=== PATIENT | female | born 1985 | race African-American/Black ===

== ENCOUNTER 2018-08-02 11:37 | Emergency (ER) | payer BC, MEDICAID ==
[~2018-08-02] VITALS: Ht 167.6 cm; Wt 151.0 kg
[2018-08-02] MEDS ORDERED: IBUPROFEN 600MG TABLET PO ONE (12:45)
[2018-08-02 13:03] LABS: CLARITY URINE CLOUDY (CLEAR); COLOR URINE DARK YELLOW (YELLOW); KETONES URINE TRACE (NEGATIVE); LEUKOCYTE ESTERASE URINE TRACE (NEGATIVE); NITRITE URINE NEGATIVE (NEGATIVE); OCCULT BLOOD URINE 3+ (NEGATIVE); PROTEIN URINE 1+ (NEGATIVE); SPECIFIC GRAVITY URINE 1.022 (1.005-1.030)
[2018-08-02 13:20] LABS: BASOPHILS % 0.6 % (0.0-2.0); EOSINOPHILS % 0.8 % (0.0-5.0); HEMATOCRIT. 36.6 % (36.0-48.0); LYMPHOCYTES % 28.6 % (20.0-50.0); MEAN CORPUSCULAR HEMOGLOBIN 28.3 pg (28.0-32.0); MEAN CORPUSCULAR VOLUME 86.2 fL (81.0-99.0); MEAN PLATELET VOLUME 9.5 fl (7.4-10.4); MONOCYTES % 6.5 % (2.0-8.0); NEUTROPHILS % 63.5 % (40.0-76.0); PLATELET 233 x1000/uL (130-400); RED BLOOD CELL COUNT 4.24 mill/uL (4.2-5.4); RED CELL DISTRIBUTION WIDTH 19.5 % (11.6-14.6)
[2018-08-02 13:26] LABS: CHLORIDE 113 mEq/L (98-107)
[2018-08-02 13:28] LABS: INR 0.9; PROTHROMBIN TIME 9.6 sec (9.6-11.0)
[2018-08-02 13:38] LABS: B-HCG QUANTITATIVE < 1 mIU/mL (<3)
[2018-08-02] MEDS ORDERED: KETOROLAC 15MG/ML VIAL IV ONE ×2 (14:00→15:15)
[2018-08-02 15:29] VITALS: BP 175/74
== END 2018-08-02 15:40 | disposition home or self-care (01) ==
LOC: ER 11:37
DX: N93.8 Other specified abnormal uterine and vaginal bleeding (principal); N92.0 Excessive and frequent menstruation with regular cycle; D62 Acute posthemorrhagic anemia; D57.1 Sickle-cell disease without crisis; I10 Essential (primary) hypertension
CPT/HCPCS: 36415; 76830; 76856; 80053; 81003; 81025; 84702; 85025; 85610; 86850; 86900; 86901; 96374; 96376; 99284; J1885; Z7610

== ENCOUNTER 2018-10-31 23:51 | Emergency (ER) | payer MEDICAID ==
[~2018-10-31] VITALS: Ht 167.6 cm; Wt 143.0 kg
[2018-11-01] MEDS ORDERED: METOCLOPRAMIDE HCL 10MG/2ML VIAL IV NR (03:14)
[2018-11-01] MEDS ORDERED: FAMOTIDINE 20MG/2ML VIAL IV NR (03:14)
[2018-11-01] MEDS ORDERED: SODIUM CHLORIDE 0.9% 1,000 ML IV ONE ×2 (03:14→06:15)
[2018-11-01] MEDS ORDERED: DIPHENHYDRAMINE 50MG/ML VIAL IV NR (03:15)
[2018-11-01 03:55] LABS: CHLORIDE 107 mEq/L (98-107)
[2018-11-01 04:00] LABS: ETHANOL BLOOD < 10 mg/dL
[2018-11-01 04:11] LABS: BASOPHILS % 0.3 % (0.0-2.0); EOSINOPHILS % 0.1 % (0.0-5.0); HEMOGLOBIN. 14.2 g/dL (12.0-16.0); LYMPHOCYTES % 20.9 % (20.0-50.0); MEAN CORPUSCULAR VOLUME 87.9 fL (81.0-99.0); MEAN PLATELET VOLUME 9.7 fl (7.4-10.4); MONOCYTES % 6.4 % (2.0-8.0); NEUTROPHILS % 72.3 % (40.0-76.0); PLATELET 245 x1000/uL (130-400); RED BLOOD CELL COUNT 4.89 mill/uL (4.2-5.4)
[2018-11-01 04:33] LABS: PROTHROMBIN TIME 10.7 sec (9.6-11.0)
[2018-11-01] MEDS ORDERED: HALOPERIDOL LACTATE 5MG/ML VIAL IM ONE (05:00)
[2018-11-01 05:51] LABS: CLARITY URINE CLEAR (CLEAR); COLOR URINE YELLOW (YELLOW); KETONES URINE 1+ (NEGATIVE); LEUKOCYTE ESTERASE URINE NEGATIVE (NEGATIVE); NITRITE URINE NEGATIVE (NEGATIVE); OCCULT BLOOD URINE NEGATIVE (NEGATIVE); PROTEIN URINE NEGATIVE (NEGATIVE); SPECIFIC GRAVITY URINE 1.016 (1.005-1.030)
[2018-11-01 06:06] LABS: *AMPHETAMINES SCREEN URINE NEGATIVE (NEGATIVE); METHADONE URINE SCREEN NEGATIVE (NEGATIVE); OPIATES URINE SCREEN NEGATIVE (NEGATIVE); PHENCYCLIDINE URINE SCREEN NEGATIVE (NEGATIVE)
[2018-11-01 06:07] LABS: *BENZODIAZEPINES SCREEN URINE NEGATIVE (NEGATIVE); *COCAINE SCREEN URINE NEGATIVE (NEGATIVE)
[2018-11-01 06:13] LABS: *BARBITURATES SCREEN URINE NEGATIVE (NEGATIVE)
[2018-11-01] MEDS ORDERED: ONDANSETRON HCL 4MG/2ML INJ IV ONE (06:15)
[2018-11-01 06:26] LABS: CANNABINOID URINE SCREEN PRESUMTIVE POSITIVE (NEGATIVE)
[2018-11-01 06:36] LABS: HCG SCREEN NEGATIVE
[2018-11-01] MEDS ORDERED: ONDANSETRON HCL 4MG/2ML INJ IV STA (07:25)
[2018-11-01 07:45] VITALS: BP 139/68
== END 2018-11-01 07:54 | disposition home or self-care (01) ==
LOC: ER 23:51
DX: R11.2 Nausea with vomiting, unspecified (principal); F12.90 Cannabis use, unspecified, uncomplicated
CPT/HCPCS: 36415; 74176; 80053; 80305; 80320; 81003; 81025; 83690; 84703; 85025; 85044; 85610; 96361; 96372; 96374; 96375; 99284; J1200; J1630; J2405; J2765; J3490; J7030; G0480

== ENCOUNTER 2019-03-25 10:04 | Emergency (ER) | payer MEDICAID ==
[~2019-03-25] VITALS: Ht 165.1 cm; Wt 154.0 kg
[2019-03-25 10:51] VITALS: BP 191/96
[2019-03-25 11:28] LABS: CLARITY URINE CLEAR (CLEAR); COLOR URINE YELLOW (YELLOW); KETONES URINE NEGATIVE (NEGATIVE); LEUKOCYTE ESTERASE URINE NEGATIVE (NEGATIVE); NITRITE URINE NEGATIVE (NEGATIVE); OCCULT BLOOD URINE NEGATIVE (NEGATIVE); PH URINE 6.5 (4.5-8.0); PROTEIN URINE NEGATIVE (NEGATIVE); SPECIFIC GRAVITY URINE 1.018 (1.005-1.030)
== END 2019-03-25 16:40 | disposition left against medical advice (07) ==
LOC: ER 10:04
DX: R11.2 Nausea with vomiting, unspecified (principal); Z53.21 Procedure and treatment not carried out due to patient leaving prior to being seen by health care provider
CPT/HCPCS: 81003; 81025; 93005

== ENCOUNTER 2019-03-30 21:28 | Emergency (ER) | payer MEDICAID ==
[~2019-03-30] VITALS: Ht 167.6 cm; Wt 154.0 kg
[2019-03-30] MEDS ORDERED: SODIUM CHLORIDE 0.9% 1,000 ML IV ONE (23:06)
[2019-03-30] MEDS ORDERED: MORPHINE SULFATE 4 MG/ML CPJ (NOT FOR IM USE) IV STA (23:06)
[2019-03-30] MEDS ORDERED: METOCLOPRAMIDE HCL 10MG/2ML VIAL IV STA (23:06)
[2019-03-30] MEDS ORDERED: FAMOTIDINE 20MG/2ML VIAL IV STA (23:06)
[2019-03-31 00:31] LABS: CHLORIDE 104 mEq/L (98-107)
[2019-03-31 00:35] LABS: BASOPHILS % 0.3 % (0.0-2.0); EOSINOPHILS % 0.4 % (0.0-5.0); HEMATOCRIT. 41.7 % (36.0-48.0); HEMOGLOBIN. 13.8 g/dL (12.0-16.0); MEAN CORPUSCULAR HEMOGLOBIN 29.7 pg (28.0-32.0); MEAN CORPUSCULAR VOLUME 89.7 fL (81.0-99.0); MEAN PLATELET VOLUME 9.9 fl (7.4-10.4); MONOCYTES % 5.1 % (2.0-8.0); NEUTROPHILS % 69.2 % (40.0-76.0); PLATELET 228 x1000/uL (130-400); RED BLOOD CELL COUNT 4.65 mill/uL (4.2-5.4); RED CELL DISTRIBUTION WIDTH 15.3 % (11.6-14.6)
[2019-03-31 01:01] LABS: CLARITY URINE CLEAR (CLEAR); COLOR URINE YELLOW (YELLOW); KETONES URINE TRACE (NEGATIVE); LEUKOCYTE ESTERASE URINE NEGATIVE (NEGATIVE); NITRITE URINE NEGATIVE (NEGATIVE); OCCULT BLOOD URINE NEGATIVE (NEGATIVE); PH URINE 7.5 (4.5-8.0); PROTEIN URINE NEGATIVE (NEGATIVE); UROBILINOGEN URINE 0.2 E.U./dL (0.2-1.0)
[2019-03-31 04:59] VITALS: BP 135/75
== END 2019-03-31 05:00 | disposition home or self-care (01) ==
LOC: ER 21:28
DX: K21.9 Gastro-esophageal reflux disease without esophagitis (principal); R19.7 Diarrhea, unspecified; E55.9 Vitamin D deficiency, unspecified; D57.1 Sickle-cell disease without crisis
CPT/HCPCS: 36415; 74176; 80053; 81003; 81025; 83690; 85025; 85044; 96361; 96374; 96375; 99284; J2270; J2765; J3490; J7030

== ENCOUNTER 2019-08-03 10:35 | Inpatient (IN) | payer MEDICAID ==
[~2019-08-03] VITALS: Ht 165.1 cm; Wt 149.7 kg
[2019-08-03] MEDS ORDERED: SODIUM CHLORIDE 0.9% 1,000 ML IV ONE (10:48)
[2019-08-03] MEDS ORDERED: ONDANSETRON HCL 4MG/2ML INJ IV STA ×2 (10:48→15:57)
[2019-08-03] MEDS ORDERED: MAGNESIUM/ALUMINUM HYDROXIDE/SIMETHICONE 30ML UDC PO STA (10:59)
[2019-08-03] MEDS ORDERED: VISCOUS LIDOCAINE 2% 15 ML UDC PO STA (10:59)
[2019-08-03] MEDS ORDERED: MORPHINE SULFATE 4 MG/ML CPJ (NOT FOR IM USE) IV ONE (11:00)
[2019-08-03 11:52] LABS: BASOPHILS % 0.4 % (0.0-2.0); EOSINOPHILS % 0.5 % (0.0-5.0); HEMOGLOBIN. 14.1 g/dL (12.0-16.0); LYMPHOCYTES % 31.4 % (20.0-50.0); MEAN CORPUSCULAR HEMOGLOBIN 28.9 pg (28.0-32.0); MEAN CORPUSCULAR VOLUME 86.1 fL (81.0-99.0); MEAN PLATELET VOLUME 9.4 fl (7.4-10.4); MONOCYTES % 6.5 % (2.0-8.0); NEUTROPHILS % 61.2 % (40.0-76.0); PLATELET 209 x1000/uL (130-400); RED BLOOD CELL COUNT 4.88 mill/uL (4.2-5.4)
[2019-08-03 11:58] LABS: CHLORIDE 104 mEq/L (98-107)
[2019-08-03 11:59] LABS: PROTHROMBIN TIME 10.3 sec (9.6-11.0)
[2019-08-03 12:02] LABS: HCG SCREEN NEGATIVE
[2019-08-03] MEDS ORDERED: MORPHINE SULFATE 4 MG/ML CPJ (NOT FOR IM USE) IV STA (15:57)
[2019-08-03] MEDS ORDERED: ZOLPIDEM TARTRATE 5MG TABLET PO PRN (16:30)
[2019-08-03] MEDS: PANTOPRAZOLE SODIUM 40 MG/VIAL IV SCH (16:30)
[2019-08-03] MEDS ORDERED: MAGNESIUM/ALUMINUM HYDROXIDE/SIMETHICONE 30ML UDC PO PRN (16:30)
[2019-08-03] MEDS ORDERED: NITROGLYCERIN 0.4MG TABLET SL SL PRN (16:30)
[2019-08-03] MEDS ORDERED: GUAIFENESIN 200MG/10ML SUGAR FREE UDC PO PRN (16:30)
[2019-08-03] MEDS ORDERED: IPRATROPIUM/ALBUTEROL 0.5-3(2.5)MG/3ML NEB ORI PRN (16:30)
[2019-08-03] MEDS ORDERED: DOCUSATE SODIUM 100MG CAPSULE PO PRN (16:30)
[2019-08-03] MEDS: SUCRALFATE 1 G/10 ML UDC PO SCH ×2 (17:45→21:49)
[2019-08-03] MEDS: ENOXAPARIN 40MG/0.4ML SYR SUBCUT SCH (17:49)
[2019-08-03 21:30] VITALS: BP 167/99
[2019-08-04 00:32] LABS: CREATINE KINASE 115 IU/L (26-192)
[2019-08-04 00:33] LABS: CREATINE KINASE MB FRACTION < 1.0 ng/mL (0.5-3.6)
[2019-08-04 10:18] LABS: CREATINE KINASE 107 IU/L (26-192)
[2019-08-04 10:19] LABS: *AMPHETAMINES SCREEN URINE NEGATIVE (NEGATIVE); *BARBITURATES SCREEN URINE NEGATIVE (NEGATIVE); *BENZODIAZEPINES SCREEN URINE NEGATIVE (NEGATIVE); *COCAINE SCREEN URINE NEGATIVE (NEGATIVE); METHADONE URINE SCREEN NEGATIVE (NEGATIVE)
[2019-08-04 10:19] LABS: CREATINE KINASE MB FRACTION < 1.0 ng/mL (0.5-3.6)
[2019-08-04 10:20] LABS: PHENCYCLIDINE URINE SCREEN NEGATIVE (NEGATIVE)
[2019-08-04 10:31] LABS: CANNABINOID URINE SCREEN PRESUMTIVE POSITIVE (NEGATIVE); OPIATES URINE SCREEN PRESUMTIVE POSITIVE (NEGATIVE)
[2019-08-04 12:01] LABS: CLARITY URINE CLEAR (CLEAR); COLOR URINE YELLOW (YELLOW); KETONES URINE 2+ (NEGATIVE); LEUKOCYTE ESTERASE URINE NEGATIVE (NEGATIVE); NITRITE URINE NEGATIVE (NEGATIVE); OCCULT BLOOD URINE NEGATIVE (NEGATIVE); PROTEIN URINE NEGATIVE (NEGATIVE); SPECIFIC GRAVITY URINE 1.015 (1.005-1.030)
[2019-08-04] MEDS: PANTOPRAZOLE SODIUM 40 MG/VIAL IV SCH (12:04)
[2019-08-04] MEDS: ENOXAPARIN 40MG/0.4ML SYR SUBCUT SCH ×2 (12:04→23:58)
[2019-08-04] MEDS: KETOROLAC 15MG/ML VIAL IV PRN (12:05)
[2019-08-04] MEDS: SUCRALFATE 1 G/10 ML UDC PO SCH ×3 (19:36→23:57)
[2019-08-04] MEDS ORDERED: DOXE150C PO (23:02)
[2019-08-04] MEDS ORDERED: ALPR1TAB2 PO (23:02)
[2019-08-04] MEDS ORDERED: QUET100T PO (23:02)
[2019-08-04] MEDS ORDERED: LOPHC5 GT (23:02)
[2019-08-04] MEDS ORDERED: HYDROXYUREA (23:02)
[2019-08-04] MEDS ORDERED: TIZA4TAB5 PO (23:02)
[2019-08-05] MEDS: ONDANSETRON HCL 4MG/2ML INJ IV PRN ×5 (00:29→21:14)
[2019-08-05] MEDS: CLONIDINE 0.1MG TABLET PO PRN ×2 (04:52→07:55)
[2019-08-05] MEDS: KETOROLAC 15MG/ML VIAL IV PRN (05:15)
[2019-08-05] MEDS: SUCRALFATE 1 G/10 ML UDC PO SCH ×5 (07:02→23:34)
[2019-08-05 08:00] VITALS: BP 151/106
[2019-08-05] MEDS: ENOXAPARIN 40MG/0.4ML SYR SUBCUT SCH ×2 (08:54→16:50)
[2019-08-05] MEDS: PANTOPRAZOLE SODIUM 40 MG/VIAL IV SCH (09:00)
[2019-08-05] MEDS ORDERED: HALOPERIDOL LACTATE 5MG/ML VIAL IM NR (09:45)
[2019-08-05 12:00] VITALS: BP 147/73
[2019-08-05] MEDS: LORAZEPAM 0.5MG TABLET PO PRN (14:38)
[2019-08-05] MEDS ORDERED: DEXT 5%/0.9% NACL 1,000 ML IV SCH (18:15)
[2019-08-05 20:00] VITALS: BP 164/90
[2019-08-06] VITALS: BP 152/86
[2019-08-06 04:00] VITALS: BP 182/109
[2019-08-06] MEDS: ONDANSETRON HCL 4MG/2ML INJ IV PRN (06:13)
[2019-08-06] MEDS: KETOROLAC 15MG/ML VIAL IV PRN (06:50)
[2019-08-06] MEDS: LORAZEPAM 0.5MG TABLET PO PRN (06:50)
[2019-08-06 08:00] VITALS: BP 170/106
[2019-08-06] MEDS ORDERED: FAMOTIDINE 20MG/2ML VIAL IV SCH (09:00)
[2019-08-06] MEDS ORDERED: HALOPERIDOL LACTATE 5MG/ML VIAL IM SCH (09:00)
[2019-08-06] MEDS ORDERED: METOCLOPRAMIDE HCL 5MG TABLET PO SCH (12:20)
== END 2019-08-06 09:22 | disposition left against medical advice (07) | DRG 243 ==
LOC: ER 10:35 → MICUSO 16:11 → EDBEDREQTM 16:15 → EDBEDREQ 16:15 → 6EST 08-04 16:11 → CANBEDREQ 08-04 23:50
PROVIDERS: ADMIT Internal Medicine; ATTEND Internal Medicine
DX: K21.9 Gastro-esophageal reflux disease without esophagitis (principal); D57.1 Sickle-cell disease without crisis; R11.2 Nausea with vomiting, unspecified; E66.01 Morbid (severe) obesity due to excess calories; F12.10 Cannabis abuse, uncomplicated; F31.9 Bipolar disorder, unspecified; I10 Essential (primary) hypertension; F41.9 Anxiety disorder, unspecified; Z53.29 Procedure and treatment not carried out because of patient's decision for other reasons; Z82.49 Family history of ischemic heart disease and other diseases of the circulatory system; Z90.49 Acquired absence of other specified parts of digestive tract; Z68.43 Body mass index [BMI] 50.0-59.9, adult; Z88.8 Allergy status to other drugs, medicaments and biological substances; Z88.5 Allergy status to narcotic agent; Z79.899 Other long term (current) drug therapy
CPT/HCPCS: 36415; 80053; 80061; 80305; 81003; 82550; 82553; 83036; 84484; 84703; 85025; 93005; 93970; 99285; C9113; J1630; J1650; J1885; J2270; J2405; J3490; J7030

== ENCOUNTER 2019-09-10 03:37 | Emergency (ER) | payer MEDICAID ==
[~2019-09-10] VITALS: Ht 165.1 cm; Wt 90.0 kg
[~2019-09-10 03:37] MED LIST: ALPR1TAB2 PO; DOXE150C PO; HYDROXYUREA; LOPHC5 GT; QUET100T PO; TIZA4TAB5 PO
[2019-09-10 06:13] VITALS: BP 156/92
== END 2019-09-10 08:00 | disposition left against medical advice (07) ==
LOC: ER 03:37
DX: Z53.21 Procedure and treatment not carried out due to patient leaving prior to being seen by health care provider (principal); R07.9 Chest pain, unspecified
CPT/HCPCS: 93005

== ENCOUNTER 2019-09-30 05:16 | Emergency (ER) | payer MEDICAID ==
[~2019-09-30] VITALS: Ht 167.6 cm; Wt 112.0 kg
[2019-09-30 05:18] VITALS: BP 142/86
[2019-09-30] MEDS ORDERED: SODIUM CHLORIDE 0.9% 1,000 ML IV ONE (06:06)
== END 2019-09-30 05:50 | disposition left against medical advice (07) ==
LOC: ER 05:16
DX: D57.1 Sickle-cell disease without crisis (principal); I10 Essential (primary) hypertension; Z88.6 Allergy status to analgesic agent; Z79.899 Other long term (current) drug therapy
CPT/HCPCS: 93005; 99283; J7030

== ENCOUNTER 2020-04-05 09:12 | Inpatient (IN) | payer MEDICAID, OTHER ==
[~2020-04-05] VITALS: Ht 167.6 cm; Wt 149.7 kg
[2020-04-05] MEDS ORDERED: ONDANSETRON HCL 4MG/2ML INJ IV STA (09:30)
[2020-04-05] MEDS ORDERED: SODIUM CHLORIDE 0.9% 1,000 ML IV ONE ×2 (09:30→09:45)
[2020-04-05 10:04] LABS: HEMATOCRIT. 41.3 % (36.0-48.0); HEMOGLOBIN. 13.4 g/dL (12.0-16.0); MEAN CORPUSCULAR HEMOGLOBIN 26.8 pg (28.0-32.0); MEAN CORPUSCULAR VOLUME 82.9 fL (81.0-99.0); MEAN PLATELET VOLUME 9.7 fl (7.4-10.4); PLATELET 325 x1000/uL (130-400); RED BLOOD CELL COUNT 4.99 mill/uL (4.2-5.4); RED CELL DISTRIBUTION WIDTH 17.7 % (11.6-14.6)
[2020-04-05 10:11] LABS: CHLORIDE 104 mEq/L (98-107)
[2020-04-05 10:15] LABS: ETHANOL BLOOD < 10 mg/dL
[2020-04-05] MEDS ORDERED: MORPHINE SULFATE 4 MG/ML CPJ (NOT FOR IM USE) IV ONE (10:15)
[2020-04-05 10:36] LABS: PLATELET ESTIMATE NORMAL
[2020-04-05 10:51] LABS: CLARITY URINE CLOUDY (CLEAR); COLOR URINE YELLOW (YELLOW); KETONES URINE 3+ (NEGATIVE); LEUKOCYTE ESTERASE URINE NEGATIVE (NEGATIVE); NITRITE URINE NEGATIVE (NEGATIVE); OCCULT BLOOD URINE NEGATIVE (NEGATIVE); PH URINE 7.5 (4.5-8.0); PROTEIN URINE TRACE (NEGATIVE); SPECIFIC GRAVITY URINE 1.025 (1.005-1.030); UROBILINOGEN URINE 0.2 E.U./dL (0.2-1.0)
[2020-04-05] MEDS ORDERED: LEVOFLOXACIN 750MG PREMIX 150 ML IV ONE (11:00)
[2020-04-05 11:14] LABS: *BARBITURATES SCREEN URINE NEGATIVE (NEGATIVE); *BENZODIAZEPINES SCREEN URINE NEGATIVE (NEGATIVE); *COCAINE SCREEN URINE NEGATIVE (NEGATIVE); METHADONE URINE SCREEN NEGATIVE (NEGATIVE); OPIATES URINE SCREEN NEGATIVE (NEGATIVE)
[2020-04-05 11:15] LABS: *AMPHETAMINES SCREEN URINE NEGATIVE (NEGATIVE); PHENCYCLIDINE URINE SCREEN NEGATIVE (NEGATIVE)
[2020-04-05 11:22] LABS: CANNABINOID URINE SCREEN PRESUMTIVE POSITIVE (NEGATIVE)
[2020-04-05 11:31] LABS: PROTHROMBIN TIME 10.7 sec (9.6-11.0)
[2020-04-05] MEDS ORDERED: KETOROLAC 30MG/ML VIAL IV NR (14:15)
[2020-04-05] MEDS ORDERED: ONDANSETRON HCL 4MG/2ML INJ IV NR (14:15)
[2020-04-05] MEDS ORDERED: CLONIDINE 0.1MG TABLET PO PRN (18:45)
[2020-04-05] MEDS ORDERED: HYDROXYZINE 10 MG TABLET PO PRN (18:45)
[2020-04-05] MEDS: DEXT 5%/0.45% NACL 1000ML 1,000 ML IV SCH (18:45)
[2020-04-05] MEDS: METOCLOPRAMIDE HCL 10MG/2ML VIAL IV PRN (19:44)
[2020-04-05] MEDS: KETOROLAC 30MG/ML VIAL IV PRN (19:44)
[2020-04-05] MEDS ORDERED: AMITRIPTYLINE 50MG TABLET PO SCH (21:00)
[2020-04-05] MEDS: PANTOPRAZOLE SODIUM 40 MG/VIAL IV SCH (21:32)
[2020-04-05] MEDS: DIPHENHYDRAMINE 50MG/ML VIAL IV PRN (21:33)
[2020-04-05] MEDS: ONDANSETRON HCL 4MG/2ML INJ IV PRN (22:33)
[2020-04-05] MEDS ORDERED: AMLO10TA4 PO (22:57)
[2020-04-05] MEDS ORDERED: METO-293 PO (22:57)
[2020-04-05] MEDS ORDERED: AMIT25TA9 PO (22:57)
[2020-04-05 22:59] VITALS: BP 168/91
[2020-04-05] MEDS: AMLODIPINE 5MG TABLET PO SCH (23:16)
[2020-04-06] MEDS: METOCLOPRAMIDE HCL 10MG/2ML VIAL IV PRN ×2 (01:18→19:33)
[2020-04-06 04:00] VITALS: BP 147/89
[2020-04-06] MEDS: KETOROLAC 30MG/ML VIAL IV PRN ×3 (05:20→19:36)
[2020-04-06 07:01] LABS: CHLORIDE 105 mEq/L (98-107)
[2020-04-06 07:12] LABS: BASOPHILS % 0.2 % (0.0-2.0); HEMOGLOBIN. 12.6 g/dL (12.0-16.0); LYMPHOCYTES % 13.2 % (20.0-50.0); MEAN CORPUSCULAR HEMOGLOBIN 26.5 pg (28.0-32.0); MEAN CORPUSCULAR VOLUME 81.7 fL (81.0-99.0); MEAN PLATELET VOLUME 9.8 fl (7.4-10.4); MONOCYTES % 5.4 % (2.0-8.0); NEUTROPHILS % 81.2 % (40.0-76.0); PLATELET 261 x1000/uL (130-400); RED BLOOD CELL COUNT 4.77 mill/uL (4.2-5.4); RED CELL DISTRIBUTION WIDTH 17.2 % (11.6-14.6)
[2020-04-06 07:23] LABS: PHOSPHORUS 2.4 mg/dL (2.5-4.9)
[2020-04-06 08:00] VITALS: BP 134/84
[2020-04-06] MEDS: PANTOPRAZOLE SODIUM 40 MG/VIAL IV SCH (08:56)
[2020-04-06] MEDS: AMLODIPINE 5MG TABLET PO SCH ×2 (08:56→22:06)
[2020-04-06] MEDS: ONDANSETRON HCL 4MG/2ML INJ IV PRN ×2 (08:56→16:42)
[2020-04-06] MEDS: DEXT 5%/0.45% NACL 1000ML 1,000 ML IV SCH (08:57)
[2020-04-06] MEDS: DIPHENHYDRAMINE 50MG/ML VIAL IV PRN ×2 (11:26→20:50)
[2020-04-06 12:00] VITALS: BP 152/102
[2020-04-06] MEDS: LACTULOSE 20G/30ML UDC PO NR ×2 (19:30→19:33)
[2020-04-06] MEDS ORDERED: LACTULOSE 20G/30ML UDC PO ONE (19:45)
[2020-04-06 20:59] VITALS: BP 143/77
[2020-04-06] MEDS ORDERED: AMITRIPTYLINE 25MG TABLET PO SCH (22:00)
[2020-04-07 00:43] VITALS: BP 144/82
[2020-04-07] MEDS: KETOROLAC 30MG/ML VIAL IV PRN (03:26)
[2020-04-07] MEDS: METOCLOPRAMIDE HCL 10MG/2ML VIAL IV PRN (03:26)
[2020-04-07] MEDS: DIPHENHYDRAMINE 50MG/ML VIAL IV PRN ×2 (03:26→08:57)
[2020-04-07 04:00] VITALS: BP 156/84
[2020-04-07] MEDS: DEXT 5%/0.45% NACL 1000ML 1,000 ML IV SCH ×2 (05:43→11:03)
[2020-04-07 08:00] VITALS: BP 157/96
[2020-04-07] MEDS: PANTOPRAZOLE SODIUM 40 MG/VIAL IV SCH (08:57)
[2020-04-07] MEDS: AMLODIPINE 5MG TABLET PO SCH (08:58)
[2020-04-07 12:00] VITALS: BP 134/89
[2020-04-07 15:01] VITALS: BP 134/89
[2020-04-07 16:00] VITALS: BP 140/89
== END 2020-04-07 17:30 | disposition home or self-care (01) | DRG 812 ==
LOC: ER 09:27 → 8WST 10:11 → CANRESERV 14:43 → ENRESERV 14:43 → EDBEDREQSVC 15:39 → EDBEDREQTM 19:25 → ENRESERV 21:15
PROVIDERS: ADMIT Internal Medicine; ATTEND Internal Medicine
DX: T40.7X1A Poisoning by cannabis (derivatives), accidental (unintentional), initial encounter (principal); K52.9 Noninfective gastroenteritis and colitis, unspecified; D57.00 Hb-SS disease with crisis, unspecified; E66.01 Morbid (severe) obesity due to excess calories; K21.9 Gastro-esophageal reflux disease without esophagitis; E78.00 Pure hypercholesterolemia, unspecified; I10 Essential (primary) hypertension; F12.90 Cannabis use, unspecified, uncomplicated; E87.2 Acidosis; Z68.43 Body mass index [BMI] 50.0-59.9, adult; Z88.5 Allergy status to narcotic agent; Z88.8 Allergy status to other drugs, medicaments and biological substances; Z79.899 Other long term (current) drug therapy; Z87.891 Personal history of nicotine dependence; K92.0 Hematemesis
CPT/HCPCS: 36415; 71045; 80053; 80305; 80320; 81003; 83605; 83735; 83880; 84100; 84484; 85025; 85044; 85660; 86850; 86900; 93005; 99285; C1893; C9113; J1200; J1885; J1956; J2270; J2405; J2765; J7030; G0480